=== PATIENT | female | born 1935 | race Caucasian/White ===

== ENCOUNTER → 2017-05-30 | Outpatient (CLI) | payer OTHER ==
--- NOTE | 2017-05-30 12:35 | RAD ---
CT ORBIT without contrast, 05/30/2017 Clinical indication: Tenderness over the right mastoid area. Comparison: None. Technique: Multiple CT images were obtained of the orbits without contrast according to standard protocol. Coronal and sagittal reformations were obtained. PQRS Compliance Statement: One or more of the following individualized dose reduction techniques were utilized for this examination: 1. Automated exposure control 2. Adjustment of the mA and/or kV according to patient size 3. Use of iterative reconstruction technique Findings: The globes and orbits are normal in size and configuration and appear intraconal fat is preserved. Mastoid air cells and paranasal sinuses are well aerated. No periauricular soft tissue mass or fluid collection and. 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 Impression: 1. Mastoid air cells and paranasal sinuses are well aerated without evidence to suggest mastoiditis. 2. Mild bilateral TMJ arthrosis.
== END | disposition home or self-care (01) ==
LOC: CT 09:26
PROVIDERS: ATTEND Nurse Practitioner
DX: H92.01 Otalgia, right ear (principal)
CPT/HCPCS: 70480